=== PATIENT | female | born 1950 | race Caucasian/White ===

== ENCOUNTER → 2023-05-28 09:46 | Outpatient (REF) | payer MEDICARE, SELFPAY ==
[2023-05-28 12:02] LABS: % Basophils 0.9 % (0-2); % Eosinophils 0.7 % (0-6); % Lymphocytes 28.5 % (20.5-51.1); % Monocytes 11.1 % (1.7-9.3); % Neutrophils 58.8 % (42.2-75.2); Absolute Lymphocytes 1.2 10^3/uL (1.2-3.4); Absolute Monocytes 0.5 10^3/uL (0.1-0.6); Absolute Neutrophils 2.5 10^3/uL (1.4-6.5); Hematocrit 35.3 % (37.0-47.0); Hemoglobin 12.2 g/dL (12.0-16.0); Mean Corp Hgb Conc. 34.6 g/dL (33.0-37.0); Mean Corpuscular Hgb 34.4 pg (27.0-31.0); Mean Corpuscular Volume 99.4 fL (81.0-99.0); Mean Platelet Volume 10.3 fL (7.4-10.4); Nucleated Red Blood Cells % 0 %; Platelet Count 257 10^3/uL (130-400); Red Blood Cell Count 3.55 10^6/uL (4.20-5.40); White Blood Cell Count 4.3 10^3/uL (4.8-10.8)
[2023-05-28 12:20] LABS: ALT (SGPT) 18 U/L (0-35); AST (SGOT) 29 U/L (14-36); Albumin 4.8 g/dl (3.5-5.0); Alkaline Phosphatase 57 U/L (38-126); Blood Urea Nitrogen 17 mg/dl (7-17); Calcium 9.3 mg/dl (8.4-10.2); Carbon Dioxide 26 mmol/L (22-30); Chloride 94 mmol/L (98-107); Glucose 106 mg/dl (70-99); Potassium 4.3 mmol/L (3.5-5.1); Sodium 129 mmol/L (135-145); Total Cholesterol 249 mg/dl (50-199); Total Protein 7.9 g/dl (6.3-8.2); Triglyceride 133 mg/dl (10-149); Very Low Density Lipoprotein 26 mg/dl (0-30); eGFR > 60.00
[2023-05-28 12:30] LABS: HDL Cholesterol 122 mg/dl; LDL Cholesterol, Calculated 101 mg/dl
[2023-05-28 16:31] LABS: Vitamin D, 25-OH*** 51.1 ng/mL (30-80)
[2023-05-28 17:21] LABS: Folate 16.2 ng/ml (2.76-20); Vitamin B12 818 pg/ml (239-931)
== END ==
LOC: HWLAB 09:46
PROVIDERS: ATTENDING PHYSICIAN Internal Medicine Rheumatology; FAMILY PHYSICIAN Family Medicine
DX: M16.10 Unilateral primary osteoarthritis, unspecified hip (principal); Z00.00 Encounter for general adult medical examination without abnormal findings; D75.89 Other specified diseases of blood and blood-forming organs; E53.8 Deficiency of other specified B group vitamins; M81.0 Age-related osteoporosis without current pathological fracture
CPT/HCPCS: 36415; 80053; 80061; 82306; 82607; 82746; 85025

== ENCOUNTER → 2023-07-13 08:28 | Outpatient (REF) | payer MEDICARE, SELFPAY ==
[2023-07-13 11:57] LABS: Urine Albumin Negative (Neg - Trace); Urine Bilirubin Negative (Negative); Urine Character Clear (Clear); Urine Color Yellow; Urine Glucose Negative (Negative); Urine Ketone 1+ (Negative); Urine Leukocyte Negative (Negative); Urine Nitrite Negative (Negative); Urine Occult Blood 2+ (Negative); Urine Specific Gravity 1.005 (<1.030); Urine Urobilinogen Negative (Neg - 1+)
[2023-07-13 12:23] LABS: ALT (SGPT) 22 U/L (0-35); AST (SGOT) 35 U/L (14-36); Albumin 4.8 g/dl (3.5-5.0); Alkaline Phosphatase 62 U/L (38-126); Blood Urea Nitrogen 13 mg/dl (7-17); Carbon Dioxide 24 mmol/L (22-30); Chloride 96 mmol/L (98-107); Glucose 93 mg/dl (70-99); Glycohemoglobin (HgbA1c) 5.3 % (4.0-5.6); Potassium 4.2 mmol/L (3.5-5.1); Sodium 128 mmol/L (135-145); Total Bilirubin 0.7 mg/dl (0.2-1.3); Total Protein 7.7 g/dl (6.3-8.2); eGFR > 60.00
[2023-07-13 12:34] LABS: Urine Mucus Few
[2023-07-13 12:36] LABS: Urine Squamous Cell 0-2 /LPF (Few)
[2023-07-13 12:37] LABS: Urine Amorphous Seen; Urine Hyaline Cast 0-2 /LPF (0-2); Urine White Cell 0-2 /HPF (0-5)
[2023-07-13 12:38] LABS: Urine Bacteria Few (Negative)
[2023-07-13 12:49] LABS: TSH Reflex To Free T4 0.59 uIU/ml (0.47-4.68)
== END ==
LOC: HWLAB 08:28
PROVIDERS: ATTENDING PHYSICIAN Family Medicine
DX: R73.01 Impaired fasting glucose (principal); E87.1 Hypo-osmolality and hyponatremia; R31.0 Gross hematuria; I10 Essential (primary) hypertension
CPT/HCPCS: 36415; 80053; 81003; 81015; 83036; 84443

== ENCOUNTER → 2023-07-25 12:37 | Outpatient (REF) | payer MEDICARE, SELFPAY | LOC: HWWDC 12:37 | PROVIDERS: ATTENDING PHYSICIAN Obstetrics & Gynecology Gynecology; FAMILY PHYSICIAN Family Medicine | DX: Z12.31 Encounter for screening mammogram for malignant neoplasm of breast (principal) | CPT/HCPCS: 77063; 77067 ==

== ENCOUNTER → 2023-07-30 08:00 | Outpatient (REF) | payer MEDICARE, SELFPAY ==
[2023-07-30 09:33] LABS: Osmolality Urine 498 mOsm/kg (300-900)
[2023-07-30 09:41] LABS: Urine Sodium 106 mmol/L (30-90)
[2023-07-30 09:50] LABS: Blood Urea Nitrogen 19 mg/dl (7-17); Calcium 9.8 mg/dl (8.4-10.2); Carbon Dioxide 23 mmol/L (22-30); Chloride 95 mmol/L (98-107); Glucose 85 mg/dl (70-99); Potassium 4.3 mmol/L (3.5-5.1); Sodium 132 mmol/L (135-145); eGFR > 60.00
[2023-07-30 10:19] LABS: Cortisol, Random 17.3 ug/dl
== END ==
LOC: HWLAB 08:00
PROVIDERS: ATTENDING PHYSICIAN Family Medicine
DX: I10 Essential (primary) hypertension (principal); E87.1 Hypo-osmolality and hyponatremia
CPT/HCPCS: 36415; 80048; 82533; 83935; 84300

== ENCOUNTER → 2023-08-23 10:44 | Outpatient (REF) | payer MEDICARE, SELFPAY | LOC: HWRAD 10:44 | PROVIDERS: ATTENDING PHYSICIAN Nurse Practitioner; FAMILY PHYSICIAN Family Medicine | DX: R31.0 Gross hematuria (principal) | CPT/HCPCS: 76770; 76856 ==

== ENCOUNTER → 2023-09-10 08:32 | Outpatient (REF) | payer MEDICARE, SELFPAY ==
[2023-09-10 12:16] LABS: Blood Urea Nitrogen 13 mg/dl (7-17); Calcium 9.5 mg/dl (8.4-10.2); Carbon Dioxide 24 mmol/L (22-30); Chloride 98 mmol/L (98-107); Glucose 98 mg/dl (70-99); Potassium 4.3 mmol/L (3.5-5.1); Sodium 130 mmol/L (135-145); eGFR > 60.00
== END ==
LOC: HWLAB 08:32
PROVIDERS: ATTENDING PHYSICIAN Family Medicine
DX: E87.1 Hypo-osmolality and hyponatremia (principal)
CPT/HCPCS: 36415; 80048

== ENCOUNTER → 2023-09-28 10:35 | Outpatient (REF) | payer MEDICARE, SELFPAY ==
[2023-09-28 12:13] LABS: Osmolality Urine 463 mOsm/kg (300-900)
[2023-09-28 13:23] LABS: Urine Sodium 93 mmol/L (30-90)
[2023-09-30 18:12] LABS: Aldosterone, Serum 13.2 ng/dL; Aldosterone/Renin Activ Ratio 26.4 ratio (<=25.0); Renin Activity Results 0.5 ng/mL/hr
== END ==
LOC: HWLAB 10:35
PROVIDERS: ATTENDING PHYSICIAN Family Medicine
DX: E87.1 Hypo-osmolality and hyponatremia (principal)
CPT/HCPCS: 36415; 82088; 83935; 84244; 84300

== ENCOUNTER → 2024-05-15 08:54 | Outpatient (REF) | payer MEDICARE, SELFPAY | LOC: RAD 08:54 | PROVIDERS: ATTENDING PHYSICIAN Internal Medicine Cardiovascular Disease | DX: Z01.810 Encounter for preprocedural cardiovascular examination (principal); I72.9 Aneurysm of unspecified site | CPT/HCPCS: 93930 ==

== ENCOUNTER → 2024-09-23 13:04 | Outpatient (REF) | payer MEDICARE, SELFPAY | LOC: HWWDC 13:04 | PROVIDERS: ATTENDING PHYSICIAN Family Medicine | DX: Z12.31 Encounter for screening mammogram for malignant neoplasm of breast (principal) | CPT/HCPCS: 77063; 77067 ==

== ENCOUNTER → 2024-09-26 09:12 | Outpatient (REF) | payer MEDICARE, SELFPAY ==
[2024-09-26 11:28] LABS: Urine Albumin Negative (Neg - Trace); Urine Bilirubin Negative (Negative); Urine Character Clear (Clear); Urine Color Yellow; Urine Glucose Negative (Negative); Urine Ketone 1+ (Negative); Urine Leukocyte Negative (Negative); Urine Nitrite Negative (Negative); Urine Occult Blood 2+ (Negative); Urine Urobilinogen Negative (Neg - 1+)
[2024-09-26 11:34] LABS: % Basophils 0.8 % (0-2); % Eosinophils 0.4 % (0-6); % Immature Granulocytes 0.2 % (0-0.5); % Lymphocytes 31.1 % (20.5-51.1); % Monocytes 9.3 % (1.7-9.3); % Neutrophils 58.2 % (42.2-75.2); Absolute Lymphocytes 1.6 10^3/uL (1.2-3.4); Absolute Monocytes 0.5 10^3/uL (0.1-0.6); Hematocrit 36.6 % (37.0-47.0); Hemoglobin 12.5 g/dL (12.0-16.0); Mean Corp Hgb Conc. 34.2 g/dL (33.0-37.0); Mean Corpuscular Hgb 34.2 pg (27.0-31.0); Mean Platelet Volume 10.5 fL (7.4-10.4); Nucleated Red Blood Cells % 0 %; Platelet Count 242 10^3/uL (130-400); Red Blood Cell Count 3.66 10^6/uL (4.20-5.40); Red Cell Dist. Width 13.7 % (11.5-14.5); White Blood Cell Count 5.2 10^3/uL (4.8-10.8)
[2024-09-26 11:48] LABS: Urine Mucus Moderate; Urine Squamous Cell 16-20 /LPF (Few)
[2024-09-26 11:49] LABS: Urine Bacteria Few (Negative)
[2024-09-26 11:52] LABS: ALT (SGPT) 19 U/L (0-35); AST (SGOT) 27 U/L (14-36); Albumin 4.9 g/dl (3.5-5.0); Alkaline Phosphatase 50 U/L (38-126); Blood Urea Nitrogen 13 mg/dl (7-17); Calcium 9.6 mg/dl (8.4-10.2); Carbon Dioxide 23 mmol/L (22-30); Chloride 99 mmol/L (98-107); Glucose 98 mg/dl (70-99); Potassium 4.2 mmol/L (3.5-5.1); Sodium 132 mmol/L (135-145); Total Cholesterol 220 mg/dl (50-199); Total Protein 7.7 g/dl (6.3-8.2); Triglyceride 98 mg/dl (10-149); Very Low Density Lipoprotein 19 mg/dl (0-30); eGFR > 60.00
[2024-09-26 12:03] LABS: HDL Cholesterol 111 mg/dl; LDL Cholesterol, Calculated 90 mg/dl
[2024-09-26 12:25] LABS: Glycohemoglobin (HgbA1c) 5.3 % (4.0-5.6)
[2024-09-26 17:16] LABS: Vitamin D, 25-OH*** 46.1 ng/mL (30-80)
[2024-09-26 17:29] LABS: TSH 1.25 uIU/ml (0.47-4.68)
[2024-09-26 17:48] LABS: Vitamin B12 645 pg/ml (239-931)
== END ==
LOC: HWLAB 09:12
PROVIDERS: ATTENDING PHYSICIAN Family Medicine
DX: Z00.00 Encounter for general adult medical examination without abnormal findings (principal); I10 Essential (primary) hypertension; E87.1 Hypo-osmolality and hyponatremia; R73.01 Impaired fasting glucose; M81.0 Age-related osteoporosis without current pathological fracture; E78.5 Hyperlipidemia, unspecified; E53.8 Deficiency of other specified B group vitamins; R31.29 Other microscopic hematuria; Z01.84 Encounter for antibody response examination
CPT/HCPCS: 36415; 80053; 80061; 81003; 81015; 82306; 82607; 83036; 84443; 85025; 86765